=== PATIENT | male | born 1955 | race Caucasian/White ===

== ENCOUNTER → 2017-10-31 | Outpatient (CLI) | payer OTHER ==
[~2017-10-31] MED LIST: ASPIRIN EC81 M1 PO; AUGMENTIN 875875 M1 PO; DILTIAZEM 24HR240 M1 PO; LISINOPRIL10 MG PO; MULTIVITAMINS1 EAC7 PO; PRADAXA150 MG PO
== END ==
LOC: CAT 10:05
DX: Z13.6 Encounter for screening for cardiovascular disorders (principal)

== ENCOUNTER → 2021-07-17 | Outpatient (CLI) | payer OTHER | LOC: CAT 10:57 | PROVIDERS: ATTEND Family Medicine | DX: Z13.6 Encounter for screening for cardiovascular disorders (principal); I25.10 Atherosclerotic heart disease of native coronary artery without angina pectoris; E78.00 Pure hypercholesterolemia, unspecified ==

== ENCOUNTER → 2021-08-23 | Outpatient (CLI) | payer BC, OTHER | LOC: SJCVCIMAG 07:39 | PROVIDERS: ATTEND Internal Medicine | DX: I11.9 Hypertensive heart disease without heart failure (principal); I48.92 Unspecified atrial flutter; R00.0 Tachycardia, unspecified; R93.1 Abnormal findings on diagnostic imaging of heart and coronary circulation; R94.31 Abnormal electrocardiogram [ECG] [EKG]; E78.5 Hyperlipidemia, unspecified; Z79.899 Other long term (current) drug therapy ==

== ENCOUNTER → 2021-09-07 | Outpatient (CLI) | payer BC, OTHER ==
[~2021-09-07] VITALS: Ht 185.4 cm; Wt 129.5 kg
[~2021-09-07] MED LIST changes: +ELIQUIS5 MG PO; +GLUCOSAMINE-CH1 EA45 PO; +LISINOPRIL20 MG PO; +MATZIM LA240 MG PO; +MULTI VITAMIN1 EACH PO; +PRAVASTATIN SOD40 MG PO; +TOPROL XL25 MG PO
[2021-09-07 07:25] VITALS: BP 126/85
== END | disposition home or self-care (01) ==
LOC: CATH 06:22
PROVIDERS: ATTEND Internal Medicine
DX: I48.91 Unspecified atrial fibrillation (principal); Z53.8 Procedure and treatment not carried out for other reasons

== ENCOUNTER → 2021-10-03 | Outpatient (CLI) | payer OTHER ==
[~2021-10-03] VITALS: Ht 185.4 cm; Wt 129.3 kg
--- NOTE | 2021-10-05 08:54 | P ---
[facility] [place] [address] PROCEDURE REPORT Name: SERVANDO PEREZ III Room #: REG TONI Deonna#: [id number] Admission: 10/03/21 Attend Phys: Jaylon Bhakta Discharge: Date of : 51 Report #: [id number] THIS REPORT FOR: cc: Marty Rubio MD, Neal A. MD McElhinney, Christian C. MD ~ cc: Marty Rubio MD DATE OF SERVICE: 10/03/2021 PROCEDURE PERFORMED: Upper endoscopy with biopsies and esophageal dilation. HISTORY OF PRESENT ILLNESS: The patient is a 65-year-old male with a history of dysphagia. States this has been ongoing for several years. It is both to solids and liquids can cause regurgitation at times. He denies any heartburn symptoms. No previous history of upper endoscopy. DESCRIPTION OF PROCEDURE: The risks and benefits of the procedure were explained to the patient, those risks including but not limited to bleeding, perforation and the risk of sedation. He understood these risks and gave informed consent. Sedation was given using propofol per anesthesia. Next, using a standard Olympus upper endoscope, the scope was placed in the patient's mouth and advanced under direct vision through the esophagus, stomach and into the second portion of the duodenum. The larynx was normal in appearance. There was a medium to large Zenker's diverticulum noted in the proximal esophagus. The mid esophagus was normal. In the distal esophagus, grade B erosive esophagitis was noted, possible short segment of Mello's was seen. Biopsies were obtained. There was a diffuse moderate gastritis noted in the gastric fundus and body. Biopsies were obtained to rule out H. pylori. No evidence of ulcerations or erosions. The pylorus was normal and patent. The duodenal bulb, first and second portion were normal. The scope was then brought back up into the patient's stomach and a Savary guidewire was inserted through the scope, leaving the guidewire in place as the scope was then withdrawn. Next, a 48-Sami Savary dilation of the esophagus was then performed without difficulty. The wire and dilator were removed. The scope was reintroduced into the patient's stomach. There was no evidence of mucosal tear after dilation. The scope was then withdrawn and the procedure terminated. The patient tolerated the procedure well. IMPRESSION: 1. Medium to large size Zenker's diverticulum likely source of dysphagia. 2. Grade B erosive esophagitis. 3. 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 4. Gastritis. 5. Otherwise, normal upper endoscopy. [address] [address] PROCEDURE REPORT Name: PEREZSERVANDO [facility] Room #: REG ASAF Ying#: [id number] Admission: 10/03/21 Attend Phys: Jaylon Bhakta Discharge: Date of : 51 Report #: [id number] RECOMMENDATIONS: 1. Await biopsy results. 2. Recommend daily PPI therapy long-term. 3. Observe the patient post dilation. If there is no significant improvement in his dysphagia, we would recommend ENT consultation for surgical correction of Zenker's diverticulum. Thank you for allowing me to participate in his care. <ELECTRONICALLY SIGNED> By: Jaylon Lao MD 10/05/21 [phone] 1826 Jaylon Lao MD /nt
--- NOTE | 2021-10-08 12:06 | PATH ---
[facility] [address] [place] [address] PATHOLOGY RPT PROCEDURE Name: PEREZSERVANDO III Room #: REG [facility] Cristal.#: [id number] Admission: 10/03/21 Date of : 51 Discharge: Report #: [id number] Path Case #: [id number] [facility] Accession Number: [id number] . 01 Material submitted: . PART A: gastrointestinal site - GASTRITIS BIOPSY PART B: esophagus - DISTAL ESOPHAGUS R/O VÁZQUEZ'S. Modifiers: distal . 01 Clinical history: . ESOPHAGOGASTRODUODENOSCOPY DYSPHAGIA GASTRITIS, ZENKER'S, ESOPHAGITIS . 02 Diagnosis: A. Stomach "gastritis", biopsy: - Gastric oxyntic mucosa without significant pathologic alteration. - Negative for active inflammation, intestinal metaplasia, dysplasia, and malignancy. - Negative for Helicobacter pylori. . B. Esophagus "distal", biopsy: - Esophageal squamous and gastric cardia mucosa with features of reflux esophagitis. - Negative for intestinal metaplasia, dysplasia, and malignancy. (MLK:carmencita; 10/05/2021) QMS 10/05/2021 1803 Local . 02 Electronically signed: . Glenn Magana MD, Pathologist NPI- [id number] . 01 Gross description: . A. Received in formalin labeled "Servando Perez, gastritis biopsy" are multiple fragments of antunez-brown soft tissue measuring in aggregate 1.6 x 0.3 x 0.1 cm. The specimen is submitted entirely in A1. . B. Received in formalin labeled "Servando Perez, distal esophagus rule out Vázquez's" is a fragment of antunez-brown soft tissue measuring 0.5 x 0.2 x 0.1 cm. The specimen is submitted entirely in B1. ([facility]; 10/04/2021) [facility] 10/04/2021 1055 Local . 02 Microscopic: . Immunohistochemical stain results (properly controlled) . - Helicobacter pylori (A1) - Negative for organisms. . (MLK:carmencita; 10/05/2021) [address] [address] PATHOLOGY RPT PROCEDURE Name: SERVANDO PEREZ III Room #: REG [facility] Cristal.#: [id number] Admission: 10/03/21 Date of : 51 Discharge: Report #: [id number] Path Case #: [id number] . 02 Pathologist provided ICD-10: R13. CPT . 865588, 538062, [id number] Specimen Comment: A courtesy copy of this report has been sent to [phone], [phone] Specimen Comment: [id number] Specimen Comment: Report sent to / DR GARCIA Specimen Comment: A duplicate report has been generated due to demographic updates. Performed at: 01 [facility] [address] [id number] MD Elie Hendrix MD Phone: [phone] Performed at: 02 [facility] [address] [id number] MD Cecilio Mclaughlin MD Phone: [phone]
== END | disposition home or self-care (01) ==
LOC: GI 09:35
PROVIDERS: ATTEND Specialist
DX: R13.19 Other dysphagia (principal); K22.5 Diverticulum of esophagus, acquired; K21.00 Gastro-esophageal reflux disease with esophagitis, without bleeding; K29.70 Gastritis, unspecified, without bleeding; I10 Essential (primary) hypertension; E78.5 Hyperlipidemia, unspecified; E78.00 Pure hypercholesterolemia, unspecified; I48.92 Unspecified atrial flutter; Z98.890 Other specified postprocedural states; Z79.899 Other long term (current) drug therapy; Z20.822 Contact with and (suspected) exposure to COVID-19; Z79.01 Long term (current) use of anticoagulants
CPT/HCPCS: 62110; 62900

== ENCOUNTER → 2021-10-09 | Outpatient (CLI) | payer OTHER | LOC: SJCVC 13:15 | PROVIDERS: ATTEND Internal Medicine | DX: R00.0 Tachycardia, unspecified (principal); I48.92 Unspecified atrial flutter; I45.10 Unspecified right bundle-branch block; R94.31 Abnormal electrocardiogram [ECG] [EKG]; I10 Essential (primary) hypertension; J18.9 Pneumonia, unspecified organism; Z72.89 Other problems related to lifestyle; Z79.899 Other long term (current) drug therapy ==